=== PATIENT | female | born 1990 | race Caucasian/White ===

== ENCOUNTER 2019-05-12 14:40 | Emergency (ER) | payer MEDICAID ==
[~2019-05-12] VITALS: Ht 162.6 cm; Wt 78.2 kg
[2019-05-12 14:50] VITALS: BP 104/67
== END 2019-05-12 15:16 | disposition home or self-care (01) ==
LOC: ER 14:41
DX: F15.10 Other stimulant abuse, uncomplicated (principal); F12.10 Cannabis abuse, uncomplicated
CPT/HCPCS: 99284